=== PATIENT | female | born 1980 | race American Indian/Alaskan Native ===

== ENCOUNTER 2020-09-22 16:57 | Emergency (ER) | payer BC, OTHER ==
[2020-09-22 17:22] VITALS: BP 155/98
--- NOTE | 2020-09-22 17:45 | Emergency Department Report ---
Blank Doc - Documentation Documentation: 39-year-old female that presents with abdominal pain with nausea vomiting. This initial assessment/diagnostic orders/clinical plan/treatment(s) is/are subject to change based on patient's health status, clinical progression and re- assessment by fellow clinical providers in the ED. Further treatment and workup at subsequent clinical providers discretion. Patient/guardians urged not to elope from the ED as their condition may be serious if not clinically assessed and managed. Initial orders include: 1- Patient sent to [facility] for further evaluation and treatment 2- labs 3- UA
[2020-09-22 18:43] LABS: Hemoglobin 13.5 gm/dl (10.1-14.3); Mean Corpuscular HGB Conc 33 % (30-34); Mean Corpuscular Volume 88 fl (79-97); Platelet Count 266 K/mm3 (140-440); Red Blood Count 4.67 M/mm3 (3.65-5.03); Red Cell Distribution Width 14.6 % (13.2-15.2)
[2020-09-22 18:59] LABS: Bacteria,Urine 1+ /HPF (Negative); Bilirubin,Urine NEG (Negative); Blood,Urine NEG (Negative); Color,Urine Yellow (Yellow); Mucus,Urine FEW /HPF; Protein,Urine <15 mg/dL mg/dL (Negative)
[2020-09-22 19:00] LABS: HCG Qualitative,Urine Negative (Negative)
[2020-09-22 19:03] LABS: Alanine Aminotransferase 18 units/L (7-56); Albumin 4.3 g/dL (3.9-5); BUN/Creatinine Ratio 8; Blood Urea Nitrogen 7 mg/dL (7-17); Calcium 9.3 mg/dL (8.4-10.2); Hemolysis Index 18
[2020-09-22 19:47] LABS: Anisocytosis RARE; Basophils % (Manual) 0 % (0.0-1.8); Eosinophils % (Manual) 0 % (0.0-4.3); Large Platelets Rare; Total Cells Counted 100
[2020-09-22] MEDS ORDERED: DICYCLOMINE 20 MG/2 ML INJ IM ONE (20:02)
[2020-09-22] MEDS ORDERED: ONDANSETRON 4 MG/2 ML INJ IV ONE (20:02)
[2020-09-22] MEDS ORDERED: SODIUM CHLORIDE 0.9% 1000 ML 1,000 ML IV ONE (20:02)
[2020-09-22] MEDS ORDERED: FAMOTIDINE 20 MG/2 ML INJ IV ONE (20:02)
--- NOTE | 2020-09-22 22:28 | Emergency Department Report ---
ED N/V/D HPI - General Chief complaint: Nausea/Vomiting/Diarrhea Stated complaint: BODY ACHES/VOMITING Time Seen by Provider: 09/22/20 17:42 Source: patient Mode of arrival: Ambulatory Limitations: No Limitations - History of Present Illness Initial comments: Patient is a 39-year-old -[place] female with a history of hypertension and vertigo who presents to the ED with complaint of acute onset persistent intermittent nausea and vomiting, mild epigastric abdominal pain and diffuse body aches and pains for the last 4 days. Patient states that she has not been able to keep anything down including fluids and food since the onset of the symptoms because of persistent nausea and vomiting. Patient states that the last meal she ate was from a restaurant about 5 days ago. Patient states that no one else at home is had similar symptoms. Patient denies dizziness, syncope, chest pain, shortness of breath, cough, dysuria, urinary frequency and urgency, hematemesis, hematochezia, diarrhea, nasal and sinus congestion no sore throat, fever and chills. MD complaint: nausea, vomiting, abdominal pain -: Sudden, days(s) (4) Description of Vomiting: food contents, watery Associated Abdominal Pain: Yes (Mildly diffuse epigastric pain) Location: diffuse Radiation: none Severity: mild Pain Scale: 2 Quality: aching, dull Consistency: intermittent Improves with: none Worsens with: eating, vomiting Context: possible food poisoning Associated Symptoms: denies other symptoms, loss of appetite, malaise, nausea/vomiting. denies: myalgias, chest pain, cough, diaphoresis, fever/chills, headaches, shortness of breath, syncope, weakness, other - Related Data Previous Rx's Medication Instructions Recorded Last Taken Type Acetaminophen/Codeine 1 tab PO Q6H PRN #10 tab 09/09/14 Unknown Rx [Acetaminophen-Codeine #3 TAB] Cephalexin [Keflex] 500 mg PO BID #20 capsule 09/09/14 Unknown Rx Ondansetron [Zofran Odt] 4 mg PO Q6H #10 tab.rapdis 09/09/14 Unknown Rx Sulfamethoxazole/Trimethoprim 1 each PO BID #20 tablet 09/09/14 Unknown Rx [Bactrim Ds] Amoxicillin/K Clav Tab [Augmentin 1 tab PO Q12H #20 tablet 05/12/15 Unknown Rx 875MG] HYDROcodone/APAP 5-325 [[place] 1 each PO Q6HR PRN #16 tablet 05/12/15 Unknown Rx 5/325] predniSONE [Deltasone] 20 mg PO BID #10 tab 05/12/15 Unknown Rx Azithromycin [Zithromax] 250 mg PO DAILY #6 tablet 01/02/16 Unknown Rx Promethazine Dm (Nf) [Phenergan Dm 5 ml PO Q6H PRN #120 01/02/16 Unknown Rx 6.25/15 mg 5 ml] Dicyclomine [Bentyl] 20 mg PO Q6H PRN #30 tablet 09/22/20 Unknown Rx Famotidine [Pepcid] 20 mg PO BID #60 tablet 09/22/20 Unknown Rx Ondansetron [Zofran Odt] 4 mg PO Q6HR PRN #20 tab.rapdis 09/22/20 Unknown Rx Allergies Allergy/AdvReac Type Severity Reaction Status Date / Time No Known Allergies Allergy Verified 01/02/16 07:40 ED Review of Systems ROS: Stated complaint: BODY ACHES/VOMITING Other details as noted in HPI Constitutional: denies: chills, fever Eyes: denies: eye pain, eye discharge, vision change ENT: denies: ear pain, throat pain Respiratory: denies: cough, shortness of breath, wheezing Cardiovascular: denies: chest pain, palpitations Endocrine: no symptoms reported Gastrointestinal: nausea, vomiting. denies: abdominal pain, diarrhea Genitourinary: denies: urgency, dysuria, discharge Musculoskeletal: denies: back pain, joint swelling, arthralgia Skin: denies: rash, lesions Neurological: denies: headache, weakness, paresthesias Psychiatric: denies: anxiety, depression Hematological/Lymphatic: denies: easy bleeding, easy bruising ED Past Medical Hx - Past Medical History Previous Medical History?: Yes Hx Hypertension: Yes Additional medical history: vertigo - Surgical History Past Surgical History?: Yes Additional Surgical History: tubal ligation - Social History Smoking Status: Never Smoker Substance Use Type: None - Medications Home Medications: Home Medications Medication Instructions Recorded Confirmed Last Taken Type Acetaminophen/Codeine 1 tab PO Q6H PRN #10 tab 09/09/14 Unknown Rx [Acetaminophen-Codeine #3 TAB] Cephalexin [Keflex] 500 mg PO BID #20 capsule 10/27/14 Unknown Rx Ondansetron [Zofran Odt] 4 mg PO Q6H #10 tab.rapdis 09/09/14 Unknown Rx Sulfamethoxazole/Trimethoprim 1 each PO BID #20 tablet 09/09/14 Unknown Rx [Bactrim Ds] Amoxicillin/K Clav Tab [Augmentin 1 tab PO Q12H #20 tablet 05/12/15 Unknown Rx 875MG] HYDROcodone/APAP 5-325 [[place] 1 each PO Q6HR PRN #16 tablet 05/12/15 Unknown Rx 5/325] predniSONE [Deltasone] 20 mg PO BID #10 tab 05/12/15 Unknown Rx Azithromycin [Zithromax] 250 mg PO DAILY #6 tablet 01/02/16 Unknown Rx Promethazine Dm (Nf) [Phenergan Dm 5 ml PO Q6H PRN #120 01/02/16 Unknown Rx 6.25/15 mg 5 ml] Dicyclomine [Bentyl] 20 mg PO Q6H PRN #30 tablet 09/22/20 Unknown Rx Famotidine [Pepcid] 20 mg PO BID #60 tablet 09/22/20 Unknown Rx Ondansetron [Zofran Odt] 4 mg PO Q6HR PRN #20 tab.rapdis 09/22/20 Unknown Rx ED Physical Exam - General Limitations: No Limitations General appearance: alert, in no apparent distress - Head Head exam: Present: atraumatic, normocephalic, normal inspection - Eye Eye exam: Present: normal appearance, PERRL, EOMI Pupils: Present: normal accommodation - ENT ENT exam: Present: normal exam, normal orophraynx, mucous membranes moist, TM's normal bilaterally, normal external ear exam - Neck Neck exam: Present: normal inspection, full ROM - Respiratory Respiratory exam: Present: normal lung sounds bilaterally. Absent: respiratory distress, wheezes, rales, rhonchi, stridor, chest wall tenderness, accessory muscle use, decreased breath sounds, prolonged expiratory - Cardiovascular Cardiovascular Exam: Present: regular rate, normal rhythm. Absent: systolic murmur, diastolic murmur, rubs, gallop - GI/Abdominal GI/Abdominal exam: Present: soft, normal bowel sounds. Absent: tenderness, guarding, rebound, hypoactive bowel sounds - Extremities Exam Extremities exam: Present: normal inspection, full ROM, normal capillary refill - Back Exam Back exam: Present: normal inspection, full ROM. Absent: tenderness, CVA tenderness (R), CVA tenderness (L), muscle spasm, paraspinal tenderness, vertebral tenderness - Neurological Exam Neurological exam: Present: alert, oriented X3, CN II-XII intact, normal gait, reflexes normal - Psychiatric Psychiatric exam: Present: normal affect, normal mood - Skin Skin exam: Present: warm, dry, intact, normal color. Absent: rash ED Course Vital Signs 09/22/20 17:21 Temperature 99.2 F Pulse Rate 94 H Respiratory 18 Rate Blood Pressure 155/98 O2 Sat by Pulse 98 Oximetry ED Medical Decision Making - Lab Data Result diagrams: 09/22/20 18:07 09/22/20 18:07 - Medical Decision Making This is a 39-year-old -[place] female with a history of hypertension and vertigo who presents to the ED with complaint of acute onset persistent intermittent nausea and vomiting, mild epigastric abdominal pain and diffuse body aches and pains for the last 4 days. Patient states that she has not been able to keep anything down including fluids and food since the onset of the symptoms because of persistent nausea and vomiting. Patient states that the last meal she ate was from a restaurant about 5 days ago. Patient states that no one else at home is had similar symptoms. In the ED, patient is alert and oriented x3 and is not in distress. Lab test results were reviewed and are all nonactionable. Patient was treated for nausea and vomiting and also given antacids and normal saline 1 L IV bolus x1. On reevaluation, patient symptoms resolved, patient passed oral fluid challenge in the ED. Patient was discharged home on prescriptions of antiemetics, antacids and antispasmodic medications. Patient was advised to maintain a clear liquid diet for 12 to 24 hours, taking medications and drink plenty of fluids. Patient was advised to follow-up with her primary care physician in 5 to 7 days for reevaluation or return to the ED immediately if symptoms get worse. - Differential Diagnosis Gastroenteritis; Dehydration; GERD; Gastritis; UTI Critical care attestation.: If time is entered above; I have spent that time in minutes in the direct care of this critically ill patient, excluding procedure time. ED Disposition Clinical Impression: Viral gastroenteritis, Nausea and vomiting in adult patient Disposition: DC-01 TO HOME OR SELFCARE Is pt being admited?: No Does the pt Need Aspirin: No Condition: Stable Instructions: Viral Gastroenteritis, Adult, [id number], Nausea and Vomiting, Adult, [id number] Additional Instructions: Maintain a clear liquid diet for 12 to 24 hours, take medication with food, drink plenty of fluids and follow-up with your primary care physician in 7 to 10 days for reevaluation. Return to the ED immediately if symptoms get worse. Prescriptions: Dicyclomine [Bentyl] 20 mg PO Q6H PRN #30 tablet PRN Reason: Abdominal pain Famotidine [Pepcid] 20 mg PO BID #60 tablet Ondansetron [Zofran Odt] 4 mg PO Q6HR PRN #20 tab.rapdis PRN Reason: Nausea Referrals: [facility] [Provider Group] - 7-10 days Forms: Work/School Release Form(ED) Time of Disposition: 22:37 Print Language: SYRIAC
== END 2020-09-22 22:50 | disposition home or self-care (01) ==
LOC: ED 16:57
DX: A08.39 Other viral enteritis (principal); I10 Essential (primary) hypertension; Z79.899 Other long term (current) drug therapy
CPT/HCPCS: 36415; 80053; 81001; 81025; 83690; 85007; 85025; 96361; 96372; 96374; 96375; 99283; J0500; J2405; J7030